=== PATIENT | female | born 1980 | race African-American/Black ===

== ENCOUNTER 2018-08-18 22:48 | Emergency (ER) | payer MEDICAID, OTHER ==
[2018-08-18 23:47] LABS: ADD MAN DIFF? NO
[2018-08-18 23:49] LABS: WHITE BLOOD COUNT 6.2 10^3/ul (4.8-10.8)
[2018-08-18 23:49] LABS: BASOPHILS % 0.5 % (0.0-2.0); EOSINOPHILS # 0.1 10^3/ul (0.0-0.5); EOSINOPHILS % 1.3 % (0.0-7.0); HEMATOCRIT 33.1 % (37.0-47.0); HEMOGLOBIN 10.7 g/dl (12.0-16.0); LYMPHOCYTES # 1.8 10^3/ul (0.8-2.9); LYMPHOCYTES % 28.4 % (15.0-51.0); MEAN CORPUSCULAR HEMOGLOBIN 28.6 pg (29.0-33.0); MEAN CORPUSCULAR HGB CONC 32.3 g/dl (32.0-37.0); MEAN CORPUSCULAR VOLUME 88.5 fl (82.0-101.0); MEAN PLATELET VOLUME 9.6 fl (7.4-10.4); MONOCYTE # 0.5 10^3/ul (0.3-0.9); NEUTROPHIL # 3.8 10^3/ul (1.6-7.5); NEUTROPHILS % 61.5 % (39.0-77.0); PLATELET COUNT 309 10^3/UL (140-415); RED BLOOD COUNT 3.74 10^6/ul (4.20-5.40); RED CELL DISTRIBUTION WIDTH 13.5 % (11.5-14.5)
[2018-08-18 23:55] LABS: ADD UMIC YES; UR ASCORBIC ACID NEGATIVE (NEGATIVE); UR BILIRUBIN (Dip) NEGATIVE (NEGATIVE); UR BLOOD (Dip) 1+ mg/dL (NEGATIVE); UR CLARITY SLIGHTLY CLOUDY (CLEAR); UR COLOR YELLOW (YELLOW); UR GLUCOSE (Dip) NEGATIVE (NEGATIVE); UR KETONES (Dip) NEGATIVE (NEGATIVE); UR LEUKOCYTE ESTERASE (Dip) NEGATIVE Leu/ul (NEGATIVE); UR MUCUS FEW /HPF (NONE SEEN); UR NITRITE (Dip) NEGATIVE (NEGATIVE); UR RBC 2 /HPF (0-5); UR SPECIFIC GRAVITY (Dip) 1.015 (1.003-1.030); UR SQUAMOUS EPITHELIAL CELL FEW /HPF (FEW); UR TOTAL PROTEIN (Dip) 2+ mg/dl (NEGATIVE); UR UROBILINOGEN (Dip) NEGATIVE (NEGATIVE); UR WBC 2 /HPF (0-5)
[2018-08-19] MEDS: METHOCARBAMOL 750 MG TAB PO
[2018-08-19] MEDS: KETOROLAC 30 MG INJ IM
[2018-08-19 00:09] LABS: ALANINE AMINOTRANSFERASE 16 IU/L (13-69); ALBUMIN/GLOBULIN RATIO 1.02; ALKALINE PHOSPHATASE 78 IU/L (42-121); ANION GAP 9 (5-13); ASPARTATE AMINO TRANSFERASE 33 IU/L (15-46); BILIRUBIN,INDIRECT 0.5 mg/dl (0-1.1); BILIRUBIN,TOTAL 0.5 mg/dl (0.2-1.3); BLOOD UREA NITROGEN 13 mg/dl (7-20); CALCIUM 9.6 mg/dl (8.4-10.2); CARBON DIOXIDE 25 mmol/L (21-31); CHLORIDE 107 mmol/L (97-110); CREATININE 1.28 mg/dl (0.44-1.00); Estimated GFR 47 mL/min (>60); GLUCOSE 104 mg/dl (70-220); LIPASE 322 U/L (23-300); POTASSIUM 3.3 mmol/L (3.5-5.1); SODIUM 141 mmol/L (135-144); TOTAL PROTEIN 7.9 g/dl (6.1-8.1)
== END 2018-08-19 01:57 | disposition home or self-care (01) ==
LOC: FTE 22:48
DX: M54.9 Dorsalgia, unspecified (principal); R35.8 Other polyuria
CPT/HCPCS: 36415; 80053; 81001; 81025; 83690; 85025; 96372; 99284-25

== ENCOUNTER 2018-10-12 19:04 | Emergency (ER) | payer OTHER | END 2018-10-12 22:05 | disposition home or self-care (01) | LOC: FTE 19:04 | DX: J02.9 Acute pharyngitis, unspecified (principal) | CPT/HCPCS: 87880; 99283 ==